=== PATIENT | male | born 1965 | race Caucasian/White ===

== ENCOUNTER 2020-07-07 14:13 | Outpatient (REF) | payer OTHER, SELFPAY ==
[2020-07-07 14:58] LABS: MANUAL DIFF FLAG NO
[2020-07-07 15:01] LABS: Hematocrit 47.3 % (42-52); Hemoglobin 15.8 g/dl (14.0-18.0); Mean Corpuscular HGB Conc 33.4 g/dl (31.0-36.0); Mean Corpuscular Hemoglobin 30.6 pg (27.0-33.0); Mean Corpuscular Volume 91.5 fL (80-98); Red Blood Count 5.17 X10*6/uL (4.60-5.80); White Blood Count 9.8 X10*3/uL (4.8-10.8)
[2020-07-07 15:02] LABS: Basophils Absolute Auto 0.1 X10*3/uL (0.0-0.2); Basophils Percent Auto 0.6 % (0-2); Eosinophils Absolute Auto 0.3 X10*3/uL (0.0-0.4); Eosinophils Percent Auto 3.2 % (0-4); Imm Gran Abs Auto 0.03 X10*3/uL (0.00-0.03); Imm Gran Pct Auto 0.3 % (0.0-0.4); Lymphocytes Absolute Auto 2.8 X10*3/uL (1.2-4.9); Lymphocytes Percent Auto 28.3 % (20-40); Mean Platelet Volume 9.3 fL (9.4-12.4); Monocytes Absolute Auto 1.1 X10*3/uL (0.1-1.2); Monocytes Percent Auto 10.7 % (2-11); Neutrophils Absolute Auto 5.6 X10*3/uL (2.0-8.3); Neutrophils Percent Auto 56.9 % (45-73); Platelet Count 243 X10*3/uL (160-400); Red Cell Distribution Width 12.3 % (11.0-16.0)
[2020-07-07 15:26] LABS: Alanine Aminotransferase 29 U/L (0-40); Alkaline Phosphatase 51 U/L (39-117); Anion Gap 12 (12-20); Aspartate Amino Transferase 19 U/L (5-37); Bilirubin Total 0.5 mg/dL (0.0-1.0); Blood Urea Nitrogen 19 mg/dL (9-16); Calcium 8.8 mg/dL (8.4-10.2); Carbon Dioxide 25 mmol/L (22-29); Chloride 105 mmol/L (96-108); Estimated Glomerular Filt Rate > 60; Glucose Random 93 mg/dL (60-115); Potassium 4.1 mmol/L (3.3-5.1); Sodium 138 mmol/L (135-145)
[2020-07-11 16:11] LABS: TS Negative Control Passed; TS Panel A 0; TS Panel B 0; TS Positive Control Passed; TSpotTB Negative (SeeBelow)
== END 2020-07-07 14:14 | disposition home or self-care (01) ==
LOC: HO.HMGCLDS 14:13
PROVIDERS: PCP Internal Medicine; Visit Provider Dermatology
DX: L40.4 Guttate psoriasis (principal); Z79.899 Other long term (current) drug therapy
CPT/HCPCS: 36415; 80053; 85025; 86481

== ENCOUNTER 2024-05-04 09:47 | Outpatient (AMB) | payer OTHER, SELFPAY ==
--- NOTE | 2024-05-04 11:09 | AM.OFFWIN_ITS ---
Intake Vital Signs 05/04/24 11:10 Height 5 ft 7 in Weight 199 lb BMI 31.2 BP 118/84 Blood Pressure Location Lt brachial Position Sitting Pulse 72 Pulse Source Pulse Oximeter Temp 98.5 F Temp Source Oral Pulse Oximetry (%) 96 Oxygen Delivery Method Room Air Intake Visit Reasons: [employer] dizzy Intake Note: Pt is here today c/o dizziness 2 espisodes this morning Allergies No Known Allergies [No Known Allergies*] Allergy (Unverified 05/04/24 11:12) HPI HPI Comments History of Present Illness Details History of Present Illness - The patient is a 58-year-old male pres enting with dizziness and loss of balance. Denies room spinning feeling. - Symptoms developed at 5:00 a.m., initi ally mild dizziness, followed by balance issues at 6:00 a.m., including blurriness and inability to stand without support. - No nausea, vomiting, shortness of darren th, or lightheadedness was reported.. - Blood pressure readings initially slig htly elevated but resolved later in the morning. - Patient is a smoker, with implications for blood pressure and dizziness. - Lacks regular medical appointments, [facility] seen by a hotel services supervisor. Physical Exam General: Cooperative, healthy appearing, comfortable, no acute distress and well developed Orientation: Patient oriented x3 Limitations: No limitations Head: Normal to inspection Ears: Hearing grossly normal bilaterally, TMs with bilateral effusions R>L, no infection noted Nose: Normal external nose present Face and sinus: Normal facial exam Eyes: Appearance normal, both eyes and all related structures Neck: Normal visual inspection and Yes full ROM Respiratory: Normal respiratory effort and able to speak in complete sentences. Clear to auscultation bilaterally Cardiovascular: Regular rate and rhythm. Normal S1 and S2 Skin: No rashes or lesions noted Neuro: Patient oriented x3 Extremities: Normal to inspection Review of Systems Const All systems reviewed & are unremarkable except as noted in HPI and below Physical Exam Vital Signs: Last Vital Signs Temp 98.5 F 05/04/24 11:10 Pulse 72 05/04/24 11:10 BP 118/84 05/04/24 11:10 Pulse Ox 96 05/04/24 11:10 Oxygen Delivery Method Room Air 05/04/24 11:10 BMI result Body Mass Index 31.2 Assessment & Plan Assessment & Plan (1) Acute effusion of right ear: Code(s): H65.191 - Other acute nonsuppurative otitis media, right ear Plan: Plan The patient's dizziness appears to be related to fluid in the middle ear, and I recommend a regimen of Flonase with specific administration guidance for optimal sinus drainage, along with regular use of an allergy pill and Benadryl at night to reduce fluid. Monitoring blood pressure is important, considering smoking's effect on his cardiovascular health. Making an appointment with his primary care provider, Dr. Art, will help in evaluating for blood pressure management and overall health surveillance. Immediate intervention is necessary if symptoms worsen, especially if they suggest a cardiac issue. Educated pt on concerning symptoms that require 911 and ED visit. Patient was informed and verbally consented to the use of an ambient scribe for clinic note documentation during this visit. Coding Level of Care Code Est Pt Level 3 (08002) Diagnoses Acute effusion of right ear H65.191
[2024-05-04 11:10] VITALS: BP 118/84; PULSE 72; TEMP 36.9; O2SAT 96; BMI 31.2
== END 2024-05-04 12:03 | disposition home or self-care (01) ==
PROVIDERS: PCP Internal Medicine; Visit Provider Physician Assistant
DX: H65.191 Other acute nonsuppurative otitis media, right ear (principal)

== ENCOUNTER → 2024-05-04 09:47 | Outpatient (BNVA) | payer OTHER, SELFPAY | PROVIDERS: PCP Internal Medicine; Visit Provider Physician Assistant | DX: H65.191 Other acute nonsuppurative otitis media, right ear (principal) | CPT/HCPCS: 99212 ==